=== PATIENT | female | born 1930 | race Asian ===

== ENCOUNTER 2018-11-19 13:44 | Emergency (ER) | payer OTHER ==
[~2018-11-19] VITALS: Ht 154.9 cm; Wt 61.7 kg
[2018-11-19 14:37] VITALS: Ht 154.9 cm; Wt 61.7 kg
[2018-11-19 16:06] VITALS: BP 164/80
== END 2018-11-19 16:06 | disposition home or self-care (01) ==
LOC: ED 13:44
DX: S20.212A Contusion of left front wall of thorax, initial encounter (principal); S80.811A Abrasion, right lower leg, initial encounter; I10 Essential (primary) hypertension; E11.9 Type 2 diabetes mellitus without complications; V49.88XA Car occupant (driver) (passenger) injured in other specified transport accidents, initial encounter; Y93.I9 Activity, other involving external motion; Y92.413 State road as the place of occurrence of the external cause; Y99.8 Other external cause status
CPT/HCPCS: 90715